=== PATIENT | female | born 1980 | race Caucasian/White ===

== ENCOUNTER 2021-04-22 15:29 | Emergency (ER) | payer OTHER ==
[2021-04-22 17:00] LABS: BILIRUBIN NEGATIVE (NEGATIVE); BLOOD 2+ Ery/uL (NEGATIVE); CLARITY CLEAR (CLEAR); COLOR YELLOW (YELLOW); GLUCOSE (U) NORMAL (NORMAL); LEUKOCYTES NEGATIVE Leu/uL (NEGATIVE); NITRITE NEGATIVE (NEGATIVE); PROTEIN NEGATIVE (NEGATIVE); SPECIFIC GRAVITY >=1.030 (1.001-1.030); UROBILINOGEN 0.2 mg/dL (0.2-1.0)
[2021-04-22 17:10] LABS: URINARY RBC RARE
[2021-04-22 17:11] LABS: AMORPHOUS URATES CRYSTALS MODERATE
[2021-04-22 17:23] LABS: BASOPHIL 0.8 % (0-2); EOSINOPHIL 0.8 % (0-5); HCT 37.3 % (37.0-47.0); HGB 12.9 g/dl (12.5-16.0); LYMPHOCYTE 6.1 % (15-48); MCH 31.6 pg (25.0-31.0); MCHC 34.6 g/dL (32.0-36.0); MCV 91.4 fL (78.0-100.0); MPV 10.9 fL (6.0-9.5); NEUTROPHIL 79.5 % (41-80); NRBC 0; PLT 173 K/uL (150-400); RBC 4.08 M/uL (4.20-5.40); WBC 5.2 K/uL (4.0-10.5)
[2021-04-22 17:35] LABS: BILIRUBIN - TOTAL 0.5 mg/dL (0.2-1.0); BUN/CREAT RATIO (CALC) 7.5 RATIO; CREATININE 0.93 mg/dL (0.51-0.95); GLOBULIN (CALCULATION) 3.3 g/dL; POTASSIUM 3.6 mmol/L (3.5-5.1); TOTAL PROTEIN 7.3 g/dL (6.4-8.2)
[2021-04-22 18:04] LABS: INFLUENZA A NAA NEGATIVE (NEGATIVE)
[2021-04-22 18:16] LABS: CORONAVIRUS 2019 SARS-COV-2 POSITIVE (NEGATIVE)
[2021-04-22] MEDS ORDERED: ZOFRAN4 M1 PO (19:15)
== END 2021-04-22 20:15 | disposition home or self-care (01) ==
LOC: FER 15:29
PROVIDERS: Nurse Practitioner Family
DX: U07.1 COVID-19 (principal); R31.9 Hematuria, unspecified; E86.0 Dehydration; Z88.1 Allergy status to other antibiotic agents
CPT/HCPCS: 36415; 71250; 80053; 81001; 85025; J1885; J2405; J2550; J7030; U0002